=== PATIENT | male | born 1970 | race African-American/Black ===

== ENCOUNTER 2016-05-10 12:16 | Emergency (ER) | payer OTHER ==
[~2016-05-10 12:16] MED LIST: ALBUTEROL17 GM INH; CENTRUM PO; FLEXERIL10 M1 PO; NAPROSYN500 MG PO; PATIENT'S PHARMACY
== END 2016-05-10 13:39 | disposition home or self-care (01) ==
LOC: CED 12:16
DX: M62.838 Other muscle spasm (principal); J45.909 Unspecified asthma, uncomplicated; E78.00 Pure hypercholesterolemia, unspecified; V89.2XXA Person injured in unspecified motor-vehicle accident, traffic, initial encounter
CPT/HCPCS: 99283

== ENCOUNTER 2016-09-11 08:58 | Emergency (ER) | payer OTHER ==
[~2016-09-11] VITALS: Ht 193 cm; Wt 112.5 kg
== END 2016-09-11 13:20 | disposition home or self-care (01) ==
LOC: CED 08:58
DX: K12.2 Cellulitis and abscess of mouth (principal); I10 Essential (primary) hypertension; J45.909 Unspecified asthma, uncomplicated
CPT/HCPCS: 96374; 96375; 99283; J0696; J1200; J2930